=== PATIENT | male | born 1955 ===

== ENCOUNTER → 2018-12-16 | Outpatient (CLI) | payer OTHER ==
[2018-12-16 18:34] LABS: CHOLESTEROL RISK RATIO 4.7
[2018-12-16 19:05] LABS: PSA-TOTAL 2.04 ng/mL (0-4)
== END ==
LOC: ZCOL.LAB 16:32
PROVIDERS: Family Medicine
DX: Z12.5 Encounter for screening for malignant neoplasm of prostate (principal); Z13.220 Encounter for screening for lipoid disorders
CPT/HCPCS: G0103